=== PATIENT | female | born 1985 | race Caucasian/White ===

== ENCOUNTER 2018-05-15 19:41 | Emergency (ER) | payer OTHER ==
[2018-05-15] MEDS ORDERED: NS 1,000 ML IV ONE (20:28)
[2018-05-15] MEDS ORDERED: METOCLOPRAMIDE 10 MG/2 ML VIAL IVP ONE (20:28)
--- NOTE | 2018-05-15 20:38 | EDPHY ---
H & P Stated Complaint: Double vision continuing after headache. Time Seen by Provider: 05/15/18 20:05 HPI/ROS: This patient reports a history of diplopia today in conjunction with a headache. 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 Shortly after this she developed a mild headache bifrontal in location achy in nature. She has had headaches with mild blurry vision that she considers migraines that usually resolved with ibuprofen but has never had uriel diplopia. While her mild headache the peak to 1/10 has resolved the diplopia persists. She explains that when she goes reach for door knob she sees to door knobs. Besides the ibuprofen that she took 600 mg she then went home from work and took CBD while which often helps with her migraine symptoms. She also reports that she had photophobia earlier which has since improved. Prior to the onset of today symptoms she felt well. Her mother brought her here by private vehicle for further evaluation. ROS: Constitutional: No fevers or chills. No other constitutional symptoms HEENT: No recent trauma. No URI symptoms or sinusitis symptoms. No ear pain. No tinnitus. Neuro: As per HPI. She reports that she had paresthesias to her face earlier as well but no focal numbness tingling or weakness. No confusion. Pulmonary: No dyspnea Cardiovascular: No chest pain or lightheadedness GI: No nausea or vomiting : Last menstrual period was normal timing 3 weeks ago. No other symptoms. Integumentary: No skin rash. 10 point ROS is otherwise negative. Source: Patient Exam Limitations: No limitations - Personal History LMP (Females 10-55): 8-14 Days Ago Current Tetanus/Diphtheria Vaccine: Unsure Current Tetanus Diphtheria and Acellular Pertussis (TDAP): Unsure - Medical/Surgical History PMH: This patient reports a 3 year history of headaches typically once every 2 or 3 months she develops more severe frontal headache the usually resolves with ibuprofen CBD while. She gets blurry vision with these and paresthesias at times but no prior diplopia. She has never had neuro imaging or formally been diagnosed as a patient with migraines. She has never taken migraine specific medication. Hx Asthma: No Hx Chronic Respiratory Disease: No Hx Diabetes: No Hx Cardiac Disease: No Hx Renal Disease: No Hx Cirrhosis: No Hx Alcoholism: No Hx HIV/AIDS: No Hx Splenectomy or Spleen Trauma: No Other PMH: Migraines - Family History Significant Family History: No pertinent family hx, Other (No family history of migraines, intracranial aneurysms) - Social History Smoking Status: Current some day smoker Alcohol Use: Occasionally (She admits drinking beer last night 1 beer and typically has 1-2 beers 1 2 times a week.) Drug Use: Marijuana (She reports that she smokes or uses CBD while a few times a week. She denies any other drug use.) Additional Social History: Works in retail. - Physical Exam Exam: Physical exam: Vital signs are normal General: Patient is in no acute distress. HEENT: Is no external evidence of trauma on exam. Eyes: Pupils are equal and reactive to light. Extraocular motions are intact. Optic fundi: Clear with no papilledema or hemorrhage. Nose atraumatic. Ears: Clear bilaterally with no hemotympanum. Oropharynx: No dental trauma or malocclusion. No intraoral lacerations. Eyes: Pupils are equal and reactive to light. Patient notes mild blurring of vision and diplopia with extraocular motions. Optic fundi: Clear with no papilledema or hemorrhage. Lungs: Clear to auscultation bilaterally Neck: Supple no meningismus. Cardiac: Regular rate and rhythm no murmur gallop or rub. Abdomen: Soft nontender no organomegaly Neuro: GCS of 15. Cranial nerves II through XII intact. Cerebellar exam is normal as judged by symmetric rapid hand movements bilaterally. No pronator drift. No sensory or motor deficits are appreciated. Confrontational visual field testing reveals no visual field deficits. Initial differential diagnosis: Migraine, tension headache, MACHINE CLIPPER lesion, intracranial bleed Constitutional: Initial Vital Signs Temperature (C) 36.7 C 05/15/18 19:56 Heart Rate 100 05/15/18 19:56 Respiratory Rate 16 05/15/18 19:56 Blood Pressure 140/56 H 05/15/18 19:56 O2 Sat (%) 97 05/15/18 19:56 O2 Delivery Mode Room Air Allergies/Adverse Reactions: amoxicillin trihydrate [From Augmentin] Allergy (Verified 05/15/18 19:59) Abdominal Pain potassium clavula *RETIRED-07/31/12 [From Augmentin] Allergy (Verified 05/15/18 19:59) Abdominal Pain Home Medications: Medication Instructions Recorded NO HOME MEDICATIONS 06/01/11 Rizatriptan Benzoate [Maxalt Lead Simulation Modeling Engineer] 10 mg PO Q2 PRN #6 05/15/18 Medical Decision Making - Diagnostics Imaging Results: Imaging Impressions Head CT 05/15/18 20:28 Impression: Normal. Results given to Dr. Elvis Traore 15 May 2018 2125 hours. Imaging: Discussed imaging studies w/ scallop raker Radiologist ED Course/Re-evaluation: IV normal saline bolus with Reglan and Benadryl IV The patient's headache resolved. Her diplopia also resolved down to minimal blurry vision but normal visual acuity. Discussion: Given this patient developed headaches somewhat later than many patients with migraines, no family history of migraines and new onset of diplopia, will proceed neuro imaging with CT scan without contrast along with treatment for migraine. CT scan is normal per radiologist. I also reviewed this CT myself. I think that this patient had diplopia as or of her migraine. I counseled regarding this. We see no evidence of intracranial hemorrhage, tumor, MACHINE CLIPPER infection or other concerning findings. Given her improvement think that she is safe for discharge home with outpatient follow-up with Neurology. Will give her a trial of Maxalt. I counseled regarding this. She understands need to return emergency department should she develop worsening of her symptoms despite the treatment plan. - Data Points Medications Given: Discontinued Medications Diphenhydramine HCl (Benadryl Injection) 25 mg IVP EDNOW ONE Stop: 05/15/18 20:29 Last Admin: 05/15/18 20:50 Dose: 25 mg Sodium Chloride (Ns) 1,000 mls @ 0 mls/hr IV ONCE ONE; Wide Open PRN Reason: Protocol Stop: 05/15/18 20:29 Last Admin: 05/15/18 20:51 Dose: 1,000 mls Metoclopramide HCl (Reglan Injection) 10 mg IVP EDNOW ONE Stop: 05/15/18 20:29 Last Admin: 05/15/18 20:50 Dose: 10 mg Departure - Departure Disposition: Home, Routine, Self-Care Clinical Impression: Migraine Qualifiers: Migraine type: with aura Status migrainosus presence: without status migrainosus Intractability: not intractable Qualified Code(s): G43.109 - Migraine with aura, not intractable, without status migrainosus Condition: Good Instructions: Migraine Headache (ED) Additional Instructions: Diagnosis: Migraine with aura Plan: For any subsequent episodes, take ibuprofen and Maxalt, drink fluids and rest. Recommend following up with Dr. Pardo, neurology for recheck. Return emergency department if he develops significant worsening of her symptoms despite the treatment plan. Referrals: Vero Ledbetter MD [Primary Care Provider] - As per Instructions Mamadou Pardo MD [Medical Doctor] - As per Instructions Prescriptions: Rizatriptan Benzoate [Maxalt Lead Simulation Modeling Engineer] 10 mg PO Q2 PRN #6 PRN Reason: migraine
[2018-05-15 22:02] VITALS: BP 101/52
== END 2018-05-15 21:50 | disposition home or self-care (01) ==
LOC: CED 19:41
DX: G43.109 Migraine with aura, not intractable, without status migrainosus (principal); F17.200 Nicotine dependence, unspecified, uncomplicated
CPT/HCPCS: 70450-PO; 96374; J1200; J2765